=== PATIENT | female | born 1950 | race Caucasian/White ===

== ENCOUNTER 2019-07-04 21:39 | Emergency (ER) | payer MEDICARE, OTHER, SELFPAY ==
[2019-07-04 21:39] VITALS: BP 129/92; PULSE 71; RESP 16; TEMP 36.8; O2SAT 96; BMI 24.1
--- NOTE | 2019-07-04 22:18 | CT_ITS ---
HISTORY: LT LOWER BACK AND FLANK PAIN ADDITIONAL HISTORY: None provided. TECHNIQUE: CT images were obtained of the abdomen and pelvis without IV contrast. Enteric contrast was not given. Number of images including paperwork: 420. A radiation dose optimization technique was used for this scan. COMPARISON: None FINDINGS: Evaluation of the abdominopelvic organs is limited in the absence of contrast. LOWER THORAX: No consolidation or pleural effusion. Minimal dependent atelectasis. LIVER: No concerning focal lesion. GALLBLADDER: Cholecystectomy. BILE DUCTS: Prominent ducts may represent post cholecystectomy change; correlate with laboratory parameters regarding the possibility of obstruction. SPLEEN: Unremarkable. PANCREAS: Unremarkable. ADRENAL GLANDS: Unremarkable. KIDNEYS/URETERS: Unremarkable. BOWEL: No bowel obstruction. No significant bowel wall thickening. No localized inflammation. Colonic diverticulosis. APPENDIX: No evidence of appendicitis. FREE FLUID: No significant free fluid. FREE AIR: None. LYMPH NODES: No pathologic appearing adenopathy. PERITONEUM, RETROPERITONEUM AND MESENTERY: Otherwise unremarkable. VASCULATURE: Atherosclerotic calcification. 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 ABDOMINAL WALL: Unremarkable. PELVIS: Unremarkable bladder. OSSEOUS AND SOFT TISSUE STRUCTURES: No acute skeletal findings. Degenerative changes. Nonspecific sclerotic density in the left iliac bone. CT/Abdomen/Pelvis without Cont IMPRESSION: 1. No acute abdominopelvic abnormality. 2. Colonic diverticulosis. 3. Additional findings above. Individualized dose optimization techniques were used for this CT. at 2353 Reported and signed by: Kiera Redmond MD Electronically Signed: Kiera Redmond MD at 23:53 EDT Tel , Service support ,
[2019-07-04] MEDS: 0.9% Normal Saline 1,000 ML 250 ML IV (22:43)
[2019-07-04 22:44] LABS: Absolute Lymphocyte Count 0.47 X10^3/uL (0.83-4.51); Absolute Neutrophil Count 6.4 X10^3/uL (2.0-7.7); Basophil# 0.01 X10^3/uL; Basophil% 0.1 % (0-1); Hemoglobin 15.3 g/dL (12.0-15.0); Lymphocyte # 0.47 X10^3/ul (4.0); Lymphocyte % 6.7 % (19-41); Mean Corpuscular Hgb 29.6 pg (27.0-32.0); Mean Platelet Vol. 9.7 fl (6.2-12.0); Monocyte# 0.09 X10^3/uL; Monocyte% 1.3 % (0-10); NRBC Flagged by Analyzer 0 % (0-5); Neutrophil # 6.44 X10^3/uL (2.7-7.7); Neutrophil % 91.6 % (47-70); POSITIVE DIFFERENTIAL YES; Platelet Count 253 K/mm3 (150-450); RBC Distribution Width CV 12.9 % (11.6-14.6); RBC Distribution Width SD 40.9 fl (35.1-43.9); Red Blood Count 5.17 M/mm3 (4.2-5.4)
[2019-07-04] MEDS: proCHLORPERazine 10 MG/2 ML Vial 5 MG IV (22:45)
[2019-07-04] MEDS: DiphenhydrAMINE 50 MG/ML Syringe 25 MG IV (22:46)
[2019-07-04] MEDS: Ketorolac 30 MG/ML Syringe 15 MG IV (22:49)
--- NOTE | 2019-07-04 22:49 | ED.VIS.GEN ---
History of Present Illness Chief Complaint: Back Informant: Patient Onset: Today Context: Gradual Onset Timing: Continuous Current Severity: Moderate Maximum Severity: Moderate Narrative: The patient presents to the emergency department low back pain. Patient thinks that her symptoms began about a week ago. She states she was lifting her 40 pound granddaughter and twisted. She really had no significant tightness in her back. She states throughout the week, she noted some intermittent pain but was never really significant. Earlier today, she traveled from [place]. She was moving luggage. She states that she laid down and began to have significant tightness in her low back. It did not radiate down her legs. She denies any changes in gait. She was nauseated and was having cramps in her legs. She denies any trouble moving her bowels or any difficulty with urination. The patient is otherwise healthy. She has no history of prior lumbar surgery. She denies any other definitive trauma. Prior similar symptoms: No Recent Illness/Hospitalization: No Past Medical History - Allergies and Home Meds Allergies/Adverse Reactions: Allergies amoxicillin Allergy (Verified 07/04/19 21:46) Hives Beef Containing Products Allergy (Verified 07/04/19 21:46) Other chicken derived Allergy (Verified 07/04/19 21:46) Other chocolate flavor Allergy (Verified 07/04/19 21:46) Other cinnamon Allergy (Verified 07/04/19 21:46) Anaphylaxis [place] And Derivatives Allergy (Verified 07/04/19 21:46) Anaphylaxis codeine Allergy (Verified 07/04/19 21:46) Unknown iodine Allergy (Verified 07/04/19 21:46) Rash nutmeg oil (Myristica seed oil) Allergy (Verified 07/04/19 21:46) Anaphylaxis peanut Allergy (Verified 07/04/19 21:46) Other pecan nut Allergy (Verified 07/04/19 21:46) Other pineapple Allergy (Verified 07/04/19 21:46) Anaphylaxis poppyseed oil Allergy (Verified 07/04/19 21:46) Other Poultry Allergy (Verified 07/04/19 21:46) Other pumpkin Allergy (Verified 07/04/19 21:46) Other ty Allergy (Verified 07/04/19 21:46) Other shellfish derived Allergy (Verified 07/04/19 21:46) Anaphylaxis tomato Allergy (Verified 07/04/19 21:46) Anaphylaxis walnut Allergy (Verified 07/04/19 21:46) Other wheat Allergy (Verified 07/04/19 21:46) Other acetaminophen [From Darvocet-N] Adverse Reaction (Verified 07/04/19 21:46) Other aspirin Adverse Reaction (Verified 07/04/19 21:46) Bleeding NSAIDS (Non-Steroidal Anti-Inflamma Adverse Reaction (Verified 07/04/19 21:46) Other propoxyphene [From Darvocet-N] Adverse Reaction (Verified 07/04/19 21:46) Other Primary Care Physician: Care Physician,No Primary [Primary Care Provider] - Prior records reviewed: Yes Past Medical History: - - Multiple allergies Surgical History: - - Lives: With Family Smoking Status: Never smoker Alcohol: None Review of Systems General: Denies: Chills, Fever, Sweats Eyes: Denies: Visual changes - bilaterally, Diplopia ENT: Denies: Rhinorrhea, Sore throat Cardiovascular: Denies: Chest pain, Palpitations Respiratory: Denies: Dyspnea, Cough, Dyspnea on exertion Gastrointestinal: Reports: Nausea. Denies: Abdominal pain, Vomiting, Diarrhea, Melena, Hematochezia Genitourinary: Denies: Dysuria, Hematuria, Frequency Musculoskeletal: Reports: Back pain. Denies: Extremity Pain Skin: Denies: Rash, Wounds Neurological: Denies: Headache, Weakness, Numbness Physical Exam Vital Signs/Narrative: Vital Signs Temp Pulse Resp BP Pulse Ox 07/04/19 21:39 98.3 F 71 16 129/92 H 96 Inital Vital Signs reviewed: Yes General: Well nourished, Well developed, No Acute Distress Head: Normocephalic, Atraumatic Eyes: Perrl, EOMI ENT: Moist mucous membranes, No rhinorrhea Neck: Supple, Nontender Cardiovascular: Regular rate, Regular rhythm, No murmurs Respiratory: No distress, CTA bilaterally, Chest nontender Abdomen: Soft, Nontender, Nondistended, Normal bowel sounds, No masses Back: Normal Inspection, - - Paraspinal bilateral lumbar tenderness. Normal pulses of the lower extremities. Normal reflexes. Straight leg raise negative.. Negative for: CVA tenderness, Spinal tenderness Extremities: Nontender, No edema Skin: Normal color, No rash Neurological: Alert, Oriented x3, Cranial nerves II-XII grossly intact, Normal Strength, Normal Sensation Psychological: Normal affect, Normal Mood Diagnostic/Tx/Re-eval Clinical Impression(s) from Imaging Studies Abdomen/Pelvis CT 07/04/19 22:18 IMPRESSION: 1. No acute abdominopelvic abnormality. 2. Colonic diverticulosis. 3. Additional findings above. Individualized dose optimization techniques were used for this CT. at 2353 Reported and signed by: Kiera Redmond MD Electronically Signed: Kiera Redmond MD at 23:53 EDT Tel , Service support , Abnormal Lab Results 07/04/19 07/04/19 07/04/19 22:35 22:35 23:45 WBC 7.0 RBC 5.17 Hgb 15.3 H Hct 45.0 MCV 87.0 MCH 29.6 MCHC 34.0 RDW Std Deviation 40.9 RDW Coeff of Mai 12.9 Plt Count 253 MPV 9.7 Immature Gran % (Auto) 0.300 Neut % (Auto) 91.6 H Lymph % (Auto) 6.7 L [place] % (Auto) 1.3 Eos % (Auto) 0.0 Baso % (Auto) 0.1 Absolute Neuts (auto) 6.4 Absolute Lymphs (auto) 0.47 L Nucleated RBC % 0 Differential Comment SCANNED Sodium 130 L Potassium 4.0 Chloride 98 Carbon Dioxide 21.0 Anion Gap 11 BUN 11 Creatinine 0.61 Estim Creat Clear Calc 46.43 Est GFR (MDRD) Af Amer 125 Est GFR (MDRD) Non-Af 103 BUN/Creatinine Ratio 18.1 Glucose 124 H Calcium 8.9 Urine Color Yellow Urine Clarity Sl. Cloudy Urine pH 6.5 Ur Specific [place] 1.010 Urine Protein 15 H Urine Glucose (UA) Normal Urine Ketones 150 H Urine Occult Blood 150 H Urine Nitrite Negative Urine Bilirubin Negative Urine Urobilinogen Normal Ur Leukocyte Esterase Negative - Medical Decision Making The patient's pain does seem muscular, but given her advanced age and nausea I did want to rule out acute intra-abdominal process. IV was established. The patient was given anti-inflammatories and antiemetics. She was feeling improved. States her pain was much better. CT the abdomen pelvis does not show an acute process. Labs are relatively unremarkable. On reevaluation, she is much more comfortable. At this point, I do feel that she is safe for outpatient therapy. She was given a short course of antiemetics and analgesics. She was counseled on range of motion exercises and reasons to return to the emergency department. The patient will be discharged home. Impression 1. Acute lumbar strain ED Disposition - Plan for ED Patient: Instructions: Back Sprain/Strain Prescriptions: Hydrocodone Bitart/Apap 5-325 [[place] 5MG-325MG] 1 tab PO Q6H PRN PRN 3 Days #10 tab PRN Reason: Pain Prescription Printed Ondansetron [Zofran Odt] 4 mg PO Q8H PRN PRN #10 tab PRN Reason: Nausea Prescription Printed Referrals: Care Physician,No Primary [Primary Care Provider] -
[2019-07-04 23:01] LABS: Anion Gap 11 (5-15); BUN 11 mg/dL (7-18); BUN/Creat Ratio 18.1 RATIO (10-20); Calcium,Total 8.9 mg/dL (8.5-10.1); Chloride 98 mmol/L (98-107); Creatinine, Serum 0.61 mg/dL (0.55-1.02); EST Glomerular Filtration Rate 103 mL/min (>60); Est Glom Filt Rate - Afr Amer 125 mL/min (>60); Estimated Creatinine Clearance 46.43 ml/min; Glucose 124 mg/dL (74-106); Sodium Level 130 mmol/L (136-145)
[2019-07-04 23:05] LABS: Differential Indicated SCAN CRITERIA MET
[2019-07-04 23:16] LABS: Differential Comment SCANNED
[2019-07-04 23:50] LABS: Bacteria 0 SEEN /hpf (None Seen); Mucous, Urine 0 SEEN /hpf (<or=2+)
[2019-07-04 23:56] LABS: Color, Urine Yellow (Yellow); Glucose, Dipstick Normal (Normal); Leukocyte Esterase-Dipstick Negative /ul (Negative); Nitrite-Dipstick Negative (Negative); Occult Blood-Urine 150 /ul (Negative); Protein-Dipstick 15 mg/dl (Negative); Urine Bilirubin Dipstick Negative (Negative); Urine Clarity Sl. Cloudy (Clear); Urine Urobilinogen Normal (Normal); Urine pH 6.5 (5.0 - 8.0)
[2019-07-05 00:04] LABS: Ketone-Dipstick 150 mg/dl (Negative)
[2019-07-05 00:12] LABS: Red Blood Cells-Urine 5-10 SEEN /hpf (0-5); Squamous Epithelial Cells - UA 0-5 SEEN /hpf (5-10); White Blood Cells 0-5 SEEN /hpf (0-5)
[2019-07-05 00:15] VITALS: BP 125/74; PULSE 73; RESP 16; O2SAT 96
== END 2019-07-05 00:25 | disposition home or self-care (01) ==
PROVIDERS: Emergency Provider Emergency Medicine
DX: S39.012A Strain of muscle, fascia and tendon of lower back, initial encounter (principal); X50.9XXA Other and unspecified overexertion or strenuous movements or postures, initial encounter; Y93.9 Activity, unspecified; Y92.9 Unspecified place or not applicable; R11.0 Nausea; K57.30 Diverticulosis of large intestine without perforation or abscess without bleeding
CPT/HCPCS: 74176; 80048; 81001; 85025; 96361; 96374; 96375; 99283; J7030; A4216